=== PATIENT | female | born 1970 | race Asian ===

== ENCOUNTER → 2018-04-10 | Outpatient (CLI) | payer BC | END | disposition home or self-care (01) | LOC: CFH 12:50 | PROVIDERS: ATTEND Family Medicine | DX: Z12.31 Encounter for screening mammogram for malignant neoplasm of breast (principal) | CPT/HCPCS: 77067 ==

== ENCOUNTER → 2020-08-16 | Outpatient (CLI) | payer BC | END | disposition home or self-care (01) | LOC: CFH 08:53 | PROVIDERS: ATTEND Family Medicine | DX: Z12.31 Encounter for screening mammogram for malignant neoplasm of breast (principal) | CPT/HCPCS: 77067 ==